=== PATIENT | female | born 1960 | race Caucasian/White ===

== ENCOUNTER 2016-12-06 13:40 | Emergency (ER) | payer OTHER ==
[~2016-12-06] VITALS: Ht 160 cm; Wt 110.5 kg
[~2016-12-06 13:40] MED LIST: ADULT LOW STREN81 M2 PO; HUMULIN 70100 UNIT/1; HUMULIN 70100 UNIT/2 SC; PREMARIN0.625 MG PO; SINGULAIR10 MG PO; Singulair PO; Vicodin,Norco 5/325 PO
[2016-12-06 15:01] LABS: HEMATOCRIT 42.1 % (36.0-46.0); MCH 30.3 PG (29.0-34.0); MCHC 33.5 G/DL (30.0-36.0); MCV 90.3 FL (83-99); MEAN PLAT.VOLUME 9.9 uM^3 (9.5-12.4); PLATELET COUNT 311 K/uL (156-360); RBC DIS.WIDTH-SD 46.3 % (39-53); RED BLOOD COUNT 4.66 M/uL (3.80-5.20); WHITE BLOOD COUNT 10.8 K/uL (4.1-10.2)
[2016-12-06 15:14] LABS: CHLORIDE 100 mEq/L (99-109); POTASSIUM 4.7 mEq/L (3.7-5.4); SODIUM 135 mEq/L (136-147)
[2016-12-06 15:16] LABS: GLUCOSE 318 mg/dL (70-99)
[2016-12-06 15:17] LABS: ANION GAP 11 MEQ/L (2-14)
[2016-12-06 15:18] LABS: TOTAL BILIRUBIN 0.2 mg/dL (0.0-1.0)
[2016-12-06 15:20] LABS: ALKALINE PHOSPHATASE 80 IU/L (3-129); GFR ESTIMATE (CALCULATED) > 59 mL/min/
[2016-12-06 15:21] LABS: UREA NITROGEN (BUN) 19 mg/dL (9-23)
[2016-12-06] MEDS ORDERED: FLEXERIL10 MG PO (15:41)
[2016-12-06 16:17] VITALS: BP 143/129
== END 2016-12-06 16:21 | disposition home or self-care (01) ==
LOC: EME 13:40
PROVIDERS: Nurse Practitioner Family
DX: M54.41 Lumbago with sciatica, right side (principal); E11.9 Type 2 diabetes mellitus without complications; J45.909 Unspecified asthma, uncomplicated; F17.200 Nicotine dependence, unspecified, uncomplicated; Z79.82 Long term (current) use of aspirin; Z79.4 Long term (current) use of insulin
CPT/HCPCS: 80053; 85027; 99281; 99284